=== PATIENT | male | born 1975 | race Two or more races ===

== ENCOUNTER 2017-06-02 08:07 | Emergency (ER) | payer SELFPAY ==
[~2017-06-02] VITALS: Ht 162.6 cm; Wt 69.8 kg
[2017-06-02] MEDS ORDERED: KETOROLAC 30 MG/1 ML ONE (08:59)
[2017-06-02] MEDS ORDERED: METHOCARBAMOL 750 MG TABLET ONE (08:59)
[2017-06-02] MEDS ORDERED: METHOCARBAMOL 750 MG TABLET PO ONE (09:00)
[2017-06-02] MEDS ORDERED: KETOROLAC 30 MG/1 ML IM ONE (09:00)
[2017-06-02 09:23] VITALS: BP 122/71
== END 2017-06-02 09:49 | disposition home or self-care (01) ==
LOC: ED 09:10
DX: S39.012A Strain of muscle, fascia and tendon of lower back, initial encounter (principal); M51.36 Other intervertebral disc degeneration, lumbar region; F17.210 Nicotine dependence, cigarettes, uncomplicated; X58.XXXA Exposure to other specified factors, initial encounter; Y93.89 Activity, other specified; Y92.89 Other specified places as the place of occurrence of the external cause; Y99.8 Other external cause status
CPT/HCPCS: 72110; 96372; 99284; J1885